=== PATIENT | female | born 1960 | race Caucasian/White ===

== ENCOUNTER 2019-04-07 06:27 | Inpatient (IN) | payer MEDICARE ==
[~2019-04-07] VITALS: Ht 170.2 cm; Wt 97.5 kg
[2019-04-07] MEDS ORDERED: LEVSOD125 PO (06:41)
[2019-04-07] MEDS ORDERED: METPHE10 PO (06:41)
[2019-04-07] MEDS ORDERED: ALPHA LIPOIC A200 M1 PO (06:41)
[2019-04-07] MEDS ORDERED: CALCIUM CIT 311 EACH (06:41)
[2019-04-07] MEDS ORDERED: SELENIUM200 MC2 PO (06:42)
[2019-04-07] MEDS ORDERED: Lysine1000 MG PO (06:42)
[2019-04-07] MEDS ORDERED: Coq-1030 MG PO (06:42)
[2019-04-07] MEDS ORDERED: FISH OIL 1,2001 EACH PO (06:42)
[2019-04-07] MEDS ORDERED: CYCL10 PO (06:43)
[2019-04-07] MEDS ORDERED: DOCU100 PO (06:43)
[2019-04-07] MEDS ORDERED: ZINC15 (06:43)
[2019-04-07] MEDS ORDERED: TURMERIC 500 M1 EACH PO ×2 (06:43→06:50)
[2019-04-07] MEDS ORDERED: ASPI81CH PO (06:44)
[2019-04-07] MEDS ORDERED: Neilmed Sinus1 EAC2 (06:44)
[2019-04-07] MEDS ORDERED: POTCIT10 (06:45)
[2019-04-07] MEDS ORDERED: MELA3 (06:45)
[2019-04-07] MEDS ORDERED: MAGNESIUM CITR125 MG PO (06:45)
[2019-04-07] MEDS ORDERED: Norco 7.5-3251 EACH (06:48)
[2019-04-07] MEDS ORDERED: KETO10 PO (06:48)
[2019-04-07] MEDS ORDERED: MUPIROCIN15 GM (06:49)
[2019-04-07] MEDS ORDERED: MORP15ER (06:49)
[2019-04-07] MEDS ORDERED: Promethazine12.5 M1 PO (06:49)
[2019-04-07] MEDS ORDERED: SUMA5NI (06:50)
[2019-04-07] MEDS ORDERED: TIZA4 PO (06:50)
[2019-04-07] MEDS ORDERED: Effexor Xr150 MG PO (06:51)
[2019-04-07] MEDS ORDERED: VERA80 PO (06:51)
[2019-04-07 08:17] LABS: BASOPHILS ABSOLUTE AUTO 0.04 K/mm3 (0.00-0.23); BASOPHILS PERCENT AUTO 0 % (0-2); EOSINOPHILS ABSOLUTE AUTO 0.13 K/mm3 (0.00-0.68); EOSINOPHILS PERCENT AUTO 1 % (0-6); Hematocrit 38.6 % (33.0-51.0); Hemoglobin 12.4 g/dL (11.5-16.0); IMMATURE GRAN ABSOLUTE AUTO 0.04 K/mm3 (0.00-0.10); IMMATURE GRAN PERCENT AUTO 0 % (0-1); LYMPHOCYTES ABSOLUTE AUTO 1.07 K/mm3 (0.84-5.20); LYMPHOCYTES PERCENT AUTO 12 % (21-46); MONOCYTES ABSOLUTE AUTO 0.45 K/mm3 (0.16-1.47); MONOCYTES PERCENT AUTO 5 % (4-13); Mean Corpuscular HGB 30.4 pg (26.0-34.0); Mean Corpuscular HGB Conc 32.1 g/dL (31.5-36.5); Mean Corpuscular Volume 95 fL (80-100); NEUTROPHILS ABSOLUTE AUTO 7.29 K/mm3 (1.96-9.15); NEUTROPHILS PERCENT AUTO 81 % (41-73); RDW Coefficient Variation 12.9 % (11.7-14.2); RDW Standard Deviation 44.8 fL (35.1-46.3); Red Blood Cell Count 4.08 M/mm3 (3.80-5.20); White Blood Cell Count 9.02 K/mm3 (4.00-11.30)
[2019-04-07 08:27] LABS: Mean Platelet Volume 9.4 fL (9.1-12.4); Platelet Count 220 K/mm3 (150-400)
[2019-04-07 08:32] LABS: Anion Gap 4 mmol/L (6-16); Blood Urea Nitrogen 22 mg/dL (8-24); Bun/Creatinine Ratio 23.7 (12.0-20.0); CO2, Blood 30 mmol/L (21-32); Calcium, Blood 8.4 mg/dL (8.5-10.1); Chloride, Blood 106 mmol/L (98-108); Creatinine, Blood 0.93 mg/dL (0.40-1.00); Glomerular Filtration Rate >60 (60-); Glucose, Blood 100 mg/dL (70-99); Potassium, Blood 4.3 mmol/L (3.5-5.5); Sodium, Blood 140 mmol/L (136-145)
[2019-04-07 09:02] LABS: International Normalized Ratio 0.96; Prothrombin Time Results 10.2 Sec (9.7-11.5)
[2019-04-07] MEDS ORDERED: TOCO1000 PO (10:57)
[2019-04-07] MEDS ORDERED: SENN187 PO (10:58)
[2019-04-07] MEDS ORDERED: VITAMIN B-1000.4 MG PO (11:00)
[2019-04-07] MEDS ORDERED: VITB2 PO (11:01)
[2019-04-07] MEDS ORDERED: Vitamin K100 MCG PO (11:02)
[2019-04-07] MEDS ORDERED: CULTURELLE1 EACH PO (11:03)
[2019-04-07] MEDS ORDERED: GENPREOPSU BOTHEYES (11:03)
[2019-04-07 11:25] LABS: Source, Urine Catheter
[2019-04-07 11:37] LABS: Bilirubin, Urine Neg (Neg); Blood, Urine Neg (Neg); Glucose Qualitative, Urine Neg (Neg); Ketones, Urine Neg (Neg); Leukocyte Esterase, Urine Neg (Neg); Nitrite, Urine Neg (Neg); Protein, Urine Neg (Neg); Urobilinogen, Urine NORM (Normal)
[2019-04-07 11:42] LABS: Appearance, Urine Clear (Clear); Color, Urine Yellow (P-Yellow)
--- NOTE | 2019-04-07 11:45 | NUR ---
ADMIT NEW ER ADMIT WITH R FEMUR FX R/T TO A FALL AT HOME. PT IS ALERT AND ORIENTED AND COOPERATIVE, BUT IS ANXIOUS AT TIMES. R LEG REPOSITIONED/ELEVATED ON PILLOWS FOR COMFORT. R LEG IS MILDLY EDEMATOUS AND IS EXTERNALLY ROTATED. PT DENIES N/T AND IS ABLE TO WIGGLE TOES. PT IS NPO AND IS ON THE SURGICAL SCHEDULE FOR TODAY. PT MEDICATED WITH IV FENTANYL FOR PAIN AND STARTED ON IVF. CALIXTO PATENT WITH CLEAR YELLOW URINE. VSS. CALL LIGHT WITHIN REACH.
[2019-04-07 12:08] LABS: U Amphetamine Screen Not Detected; U Barbituate Screen Not Detected; U Benzodiazapine Screen Not Detected; U Buprenorphine Screen Not Detected; U Cannabinoids Screen Not Detected; U Cocaine Screen Not Detected; U Methadone Screen Not Detected; U Methamphetamine Screen Not Detected; U Opiates Screen Not Detected; U Oxycodone Screen Not Detected; U Phencyclidine Screen Not Detected; U Propoxyphene Screen Not Detected
--- NOTE | 2019-04-07 12:14 | NUR ---
REQUEST FOR CURRENT MEDICATION LIST FAXED TO [facility].
--- NOTE | 2019-04-07 12:54 | NUR ---
DR. VILLEDA IN TO CONSULT ON PATIENT.
--- NOTE | 2019-04-07 14:20 | NUR ---
PT TO DAY SURGERY VIA HOSPITAL BED.
--- NOTE | 2019-04-07 14:28 | NUR ---
History, Chart, Medications and Allergies reviewed before start of procedure.History, Chart, Medications and Allergies reviewed before start of procedure.Patient confirms NPO status and agrees with scheduled surgery.
--- NOTE | 2019-04-07 14:50 | NUR ---
PHONE GLASSES DENTURES LEFT IN PATIENTS ROOM. RING REMOVED AND PLACED IN BAG IN PATIENTS CHART.
--- NOTE | 2019-04-07 19:47 | NUR ---
20GA IV LAC REMOVED UNDER NURSES SUPERVISION DUE TO INFILTRATION.
--- NOTE | 2019-04-07 21:04 | NUR ---
PT ARRIVED FROM PACU VIA GURNEY AT 1930. PT A/O WITH AQUACEL IN PLACE TO RIGHT HIP C/D/I; NO DRAINAGE NOTED. VITALS STABLE AND RATES PAIN AT TOLERABLE LEVEL. SPO2 AT 98% ON RA. CALL LIGHT WITHIN REACH.
--- NOTE | 2019-04-08 04:19 | NUR ---
SHIFT SUMMARY POD #1 S/P RIGHT RASHEED. AQUACEL DRESSING C/D/I WITH NO DRAINAGE NOTED. A&OX4 WITH VSS. PAIN MANAGED PER EMAR WITH PO MEDICATIONS. CALIXTO REMOVED DURING SHIFT, ABLE TO VOID AFTER. PASSING FLATUS AND BM. TOLERATING REG ADA DIET WELL, DENIES N/V. AMB TO BATHROOM WITH SBA, GAITBELT, AND FWW.
[2019-04-08 04:39] LABS: BASOPHILS ABSOLUTE AUTO 0.02 K/mm3 (0.00-0.23); BASOPHILS PERCENT AUTO 0 % (0-2); EOSINOPHILS PERCENT AUTO 0 % (0-6); Hematocrit 31.3 % (33.0-51.0); Hemoglobin 9.9 g/dL (11.5-16.0); IMMATURE GRAN ABSOLUTE AUTO 0.04 K/mm3 (0.00-0.10); IMMATURE GRAN PERCENT AUTO 0 % (0-1); LYMPHOCYTES PERCENT AUTO 5 % (21-46); MONOCYTES ABSOLUTE AUTO 0.75 K/mm3 (0.16-1.47); MONOCYTES PERCENT AUTO 6 % (4-13); Mean Corpuscular HGB 30.5 pg (26.0-34.0); Mean Corpuscular HGB Conc 31.6 g/dL (31.5-36.5); Mean Corpuscular Volume 96 fL (80-100); Mean Platelet Volume 9.1 fL (9.1-12.4); NEUTROPHILS ABSOLUTE AUTO 11.43 K/mm3 (1.96-9.15); NEUTROPHILS PERCENT AUTO 88 % (41-73); Platelet Count 251 K/mm3 (150-400); RDW Coefficient Variation 12.9 % (11.7-14.2); RDW Standard Deviation 46.2 fL (35.1-46.3); Red Blood Cell Count 3.25 M/mm3 (3.80-5.20); White Blood Cell Count 12.94 K/mm3 (4.00-11.30)
[2019-04-08 05:14] LABS: Alanine Aminotransfer (ALT/SGP 23 U/L (12-78); Albumin, Blood 2.7 g/dL (3.4-5.0); Albumin/Globulin Ratio 0.8 (0.8-1.8); Alk Phos 107 U/L (50-136); Anion Gap 6 mmol/L (6-16); Aspartate Aminotrans (AST/SGOT 32 U/L (12-37); Bilirubin, Total <0.1 mg/dL (0.1-1.0); Blood Urea Nitrogen 29 mg/dL (8-24); Bun/Creatinine Ratio 31.4 (12.0-20.0); CO2, Blood 27 mmol/L (21-32); Calcium, Blood 7.7 mg/dL (8.5-10.1); Chloride, Blood 106 mmol/L (98-108); Creatinine, Blood 0.92 mg/dL (0.40-1.00); Globulin, Blood 3.2 g/dL (2.2-4.0); Glomerular Filtration Rate >60 (60-); Glucose, Blood 202 mg/dL (70-99); Potassium, Blood 4.2 mmol/L (3.5-5.5); Sodium, Blood 139 mmol/L (136-145); Total Protein, Blood 5.9 g/dL (6.4-8.2)
--- NOTE | 2019-04-08 17:27 | NUR ---
PAIN CONTROLLED WITH PO MEDS. PATIENT IS ANTICIPATING DISCHARGE HOME TOMORROW AFTER PT SESSION.PATIENT MIGRAINE RELIEVED AFTER DHE INJECTION. DONNA PO FOOD AND FLUID WITHOUT NAUSEA
--- NOTE | 2019-04-09 04:13 | NUR ---
Patient A/O x4. VSS. Complaints of pain to R hip; medicated as ordered. Ambulating with SBA and FWW. Weightbear as gee. Aquacell dressing DCI. Voiding freely. Tolerating PO intake.
--- NOTE | 2019-04-09 06:16 | NUR ---
Low grade temp 100F, Tylenol given. Educated patient on deep breathing and cough.
[2019-04-09] MEDS ORDERED: Flonase 0.05% N16 GM (06:39)
[2019-04-09 09:34] LABS: BASOPHILS ABSOLUTE AUTO 0.02 K/mm3 (0.00-0.23); BASOPHILS PERCENT AUTO 0 % (0-2); EOSINOPHILS ABSOLUTE AUTO 0.09 K/mm3 (0.00-0.68); EOSINOPHILS PERCENT AUTO 1 % (0-6); Hematocrit 29.1 % (33.0-51.0); Hemoglobin 9.2 g/dL (11.5-16.0); IMMATURE GRAN ABSOLUTE AUTO 0.04 K/mm3 (0.00-0.10); IMMATURE GRAN PERCENT AUTO 0 % (0-1); LYMPHOCYTES ABSOLUTE AUTO 1.61 K/mm3 (0.84-5.20); LYMPHOCYTES PERCENT AUTO 18 % (21-46); MONOCYTES ABSOLUTE AUTO 0.56 K/mm3 (0.16-1.47); MONOCYTES PERCENT AUTO 6 % (4-13); Mean Corpuscular HGB 29.9 pg (26.0-34.0); Mean Corpuscular HGB Conc 31.6 g/dL (31.5-36.5); Mean Corpuscular Volume 95 fL (80-100); Mean Platelet Volume 9.2 fL (9.1-12.4); NEUTROPHILS ABSOLUTE AUTO 6.69 K/mm3 (1.96-9.15); NEUTROPHILS PERCENT AUTO 74 % (41-73); Platelet Count 184 K/mm3 (150-400); RDW Coefficient Variation 13.2 % (11.7-14.2); RDW Standard Deviation 45.7 fL (35.1-46.3); Red Blood Cell Count 3.08 M/mm3 (3.80-5.20); White Blood Cell Count 9.01 K/mm3 (4.00-11.30)
[2019-04-09] MEDS ORDERED: TYLENOL325 MG PO (12:12)
[2019-04-09] MEDS ORDERED: Senna Plus Tab1 EACH PO (12:13)
[2019-04-09] MEDS ORDERED: OXYC5 PO (12:29)
--- NOTE | 2019-04-09 14:27 | NUR ---
DISCHARGE PT PROVIDED WITH WRITTEN AND VERBAL DISCHARGE INSTRUCTIONS, SCRIPT FOR PAIN MEDICATION, AND CLEAN DRESSINGS. PT REPORTED UNDERSTANDING DISCHARGE INSTRUCTIONS AFTER QUESTIONS WERE ANSWERED. PT DISCHARGE AT APPROXIMATELY 1319. PRIOR TO DISCHARGE SAFETY WHILE AMBULATING WAS DISCUSSED. PT WAS ENCOURAGED TO USE A FWW INSTEAD OF A 4-WHEELED WALKER. PT REPORTS SHE FEELS UNSAFE USING A FWW AND SHE PLANS TO CONTINUE TO USE A 4-WHEELED WALKER. DISCUSSED WITH PATIENT THAT 4-WHEELED WALKER WILL NOT PROVIDE ADEQUATE SUPPORT AND SHE WILL NOT BE ABLE TO STAND UP STRAIGHT OR STEP INSIDE THE WALKER WHILE USING IT. PT REPORTED SHE UNDERSTOOD, SCRIPT PROVIDED FOR FWW WHICH PT REPORTED SHE WOULD NOT FILL.
== END 2019-04-09 13:19 | disposition home or self-care (01) | DRG 470 ==
LOC: ER 06:27 → SURS 09:48
PROVIDERS: Emergency Medicine; Internal Medicine; Nurse Practitioner Acute Care; Orthopaedic Surgery; ADMIT Internal Medicine
PROC: 0SR904A Replacement of Right Hip Joint with Ceramic on Polyethylene Synthetic Substitute, Uncemented, Open Approach (ICD-10-PCS; principal; 2019-04-07 15:30)
DX: S72.011A Unspecified intracapsular fracture of right femur, initial encounter for closed fracture (principal); G89.4 Chronic pain syndrome; E06.3 Autoimmune thyroiditis; F32.9 Major depressive disorder, single episode, unspecified; E11.9 Type 2 diabetes mellitus without complications; F41.0 Panic disorder [episodic paroxysmal anxiety]; F90.9 Attention-deficit hyperactivity disorder, unspecified type; F42.9 Obsessive-compulsive disorder, unspecified; G43.909 Migraine, unspecified, not intractable, without status migrainosus; G44.89 Other headache syndrome; Z88.6 Allergy status to analgesic agent; Z88.8 Allergy status to other drugs, medicaments and biological substances; Z79.82 Long term (current) use of aspirin; Z79.899 Other long term (current) drug therapy; Z87.891 Personal history of nicotine dependence
CPT/HCPCS: 36415; 51702; 71045; 72170; 73502; 73560-RT; 80048; 80053; 81003; 82947; 85025; 85610; 93005; 93010; 96374-59; 96375-59; 96376-59; 97110; 97116; 97162; 97165; 97530; 97535; 99285-25; A9270; C1776; J0171; J0690; J0735; J1100; J1110; J1885; J2250; J2270; J2405; J2704; J2795; J3010; J3370; J7030; J7120

== ENCOUNTER 2019-09-03 09:53 | Day surgery (SDC) | payer MEDICARE ==
[~2019-09-03 09:53] MED LIST: ALPHA LIPOIC A200 M1 PO; ASPI81CH PO; CALCIUM CIT 311 EACH PO; CULTURELLE1 EACH PO; CYCL10 PO; Coq-1030 MG PO; DOCU100 PO; Effexor Xr150 MG PO; FISH OIL 1,2001 EACH PO; Flonase 0.05% N16 GM; GENPREOPSU BOTHEYES; KETO10 PO; LEVSOD125 PO; Lysine1000 MG PO; MAGNESIUM CITR125 MG PO; MELA3; METPHE10 PO; MORP15ER; MUPIROCIN15 GM; Neilmed Sinus1 EAC2; Norco 7.5-3251 EACH; OXYC5 PO; POTCIT10; Promethazine12.5 M1 PO; SELENIUM200 MC2 PO; SENN187 PO; SUMA5NI; Senna Plus Tab1 EACH PO; TIZA4 PO; TOCO1000 PO; TURMERIC 500 M1 EACH PO; TYLENOL325 MG PO; VERA80 PO; VITAMIN B-1000.4 MG PO; VITB2 PO; Vitamin K100 MCG PO; ZINC15
[2019-09-03] MEDS ORDERED: ACET325 PO (10:30)
[2019-09-03] MEDS ORDERED: Abilify2 MG PO (13:18)
[2019-09-03] MEDS ORDERED: SUCR1 PO (13:19)
[2019-09-03] MEDS ORDERED: OMEP20ER PO (13:19)
== END 2019-09-03 11:35 | disposition home or self-care (01) ==
LOC: ATC 09:53
DX: E86.0 Dehydration (principal); R11.2 Nausea with vomiting, unspecified; Z79.82 Long term (current) use of aspirin; Z79.899 Other long term (current) drug therapy; Z98.84 Bariatric surgery status
CPT/HCPCS: 96360; J7030

== ENCOUNTER 2019-09-10 00:41 | Day surgery (SDC) | payer MEDICARE ==
[~2019-09-10 00:41] MED LIST changes: +ACET325 PO; +Abilify2 MG PO; -CULTURELLE1 EACH PO; +Culturelle1 CAP PO; +EUTHYROX125 MCG PO; -LEVSOD125 PO; +OMEP20ER PO; +SUCR1 PO
== END 2019-09-10 12:42 | disposition home or self-care (01) ==
LOC: ATC 00:41
DX: E86.0 Dehydration (principal); R11.2 Nausea with vomiting, unspecified; E78.5 Hyperlipidemia, unspecified; J45.909 Unspecified asthma, uncomplicated; I10 Essential (primary) hypertension; K21.9 Gastro-esophageal reflux disease without esophagitis; F32.9 Major depressive disorder, single episode, unspecified; E11.42 Type 2 diabetes mellitus with diabetic polyneuropathy; Z98.84 Bariatric surgery status; E66.9 Obesity, unspecified; Z88.8 Allergy status to other drugs, medicaments and biological substances; Z88.1 Allergy status to other antibiotic agents; Z91.018 Allergy to other foods; Z79.899 Other long term (current) drug therapy; Z79.82 Long term (current) use of aspirin; Z87.891 Personal history of nicotine dependence; Z68.42 Body mass index [BMI] 45.0-49.9, adult
CPT/HCPCS: J7030

== ENCOUNTER 2019-10-16 01:54 | Day surgery (SDC) | payer MEDICARE ==
[~2019-10-16 01:54] MED LIST changes: +AIMOVIG AU70 MG/1 ML SC
== END 2019-10-16 15:18 | disposition home or self-care (01) ==
LOC: ATC 01:54
DX: E86.0 Dehydration (principal); Z98.84 Bariatric surgery status; R11.2 Nausea with vomiting, unspecified; F41.1 Generalized anxiety disorder; E78.5 Hyperlipidemia, unspecified; K21.9 Gastro-esophageal reflux disease without esophagitis; E66.9 Obesity, unspecified; G47.33 Obstructive sleep apnea (adult) (pediatric); E11.42 Type 2 diabetes mellitus with diabetic polyneuropathy; Z79.899 Other long term (current) drug therapy
CPT/HCPCS: 96360; J7030

== ENCOUNTER 2019-10-26 00:14 | Day surgery (SDC) | payer MEDICARE | END 2019-10-26 09:35 | disposition home or self-care (01) | LOC: ATC 00:14 | DX: E86.0 Dehydration (principal); E78.5 Hyperlipidemia, unspecified; E66.9 Obesity, unspecified; K21.9 Gastro-esophageal reflux disease without esophagitis; G47.33 Obstructive sleep apnea (adult) (pediatric); F33.9 Major depressive disorder, recurrent, unspecified; G89.29 Other chronic pain; I10 Essential (primary) hypertension; J45.909 Unspecified asthma, uncomplicated; E11.42 Type 2 diabetes mellitus with diabetic polyneuropathy; Z68.42 Body mass index [BMI] 45.0-49.9, adult; Z79.899 Other long term (current) drug therapy; Z98.84 Bariatric surgery status; Z87.891 Personal history of nicotine dependence | CPT/HCPCS: 96360; J7030 ==

== ENCOUNTER 2019-10-30 02:01 | Day surgery (SDC) | payer MEDICARE | END 2019-10-30 22:48 | disposition home or self-care (01) | LOC: ATC 02:01 | DX: E86.0 Dehydration (principal); R11.2 Nausea with vomiting, unspecified; Z98.84 Bariatric surgery status; I10 Essential (primary) hypertension; E78.5 Hyperlipidemia, unspecified; E03.9 Hypothyroidism, unspecified; K21.9 Gastro-esophageal reflux disease without esophagitis; F41.9 Anxiety disorder, unspecified; J45.909 Unspecified asthma, uncomplicated; F32.9 Major depressive disorder, single episode, unspecified; E11.42 Type 2 diabetes mellitus with diabetic polyneuropathy; Z79.82 Long term (current) use of aspirin; Z79.899 Other long term (current) drug therapy | CPT/HCPCS: 96360; J7030 ==

== ENCOUNTER 2019-11-16 00:31 | Day surgery (SDC) | payer MEDICARE ==
[~2019-11-16 00:31] MED LIST changes: -Culturelle1 CAP PO; -GENPREOPSU BOTHEYES; +PRED-G 1% EYE DR5 ML BOTHEYES; +[UNRECOGNIZED DRUG - OTHER] PO
[2019-11-16 17:11] LABS: Anion Gap 6 mmol/L (6-16); Blood Urea Nitrogen 38 mg/dL (8-24); Bun/Creatinine Ratio 42.9 (12.0-20.0); CO2, Blood 25 mmol/L (21-32); Calcium, Blood 8.9 mg/dL (8.5-10.1); Chloride, Blood 106 mmol/L (98-108); Creatinine, Blood 0.89 mg/dL (0.40-1.00); Glomerular Filtration Rate >60 (60-); Glucose, Blood 126 mg/dL (70-99); Potassium, Blood 3.8 mmol/L (3.5-5.5); Sodium, Blood 137 mmol/L (136-145)
== END 2019-11-16 17:43 | disposition home or self-care (01) ==
LOC: ATC 00:31
PROVIDERS: Surgery
DX: Z98.84 Bariatric surgery status (principal); K21.9 Gastro-esophageal reflux disease without esophagitis; E66.9 Obesity, unspecified; E78.5 Hyperlipidemia, unspecified; G47.33 Obstructive sleep apnea (adult) (pediatric); J45.909 Unspecified asthma, uncomplicated; F32.9 Major depressive disorder, single episode, unspecified; E11.42 Type 2 diabetes mellitus with diabetic polyneuropathy; I10 Essential (primary) hypertension; Z79.82 Long term (current) use of aspirin; Z79.899 Other long term (current) drug therapy
CPT/HCPCS: 80048; 96360; J7030

== ENCOUNTER 2019-11-20 00:05 | Day surgery (SDC) | payer MEDICARE | END 2019-11-20 14:41 | disposition home or self-care (01) | LOC: ATC 00:05 | DX: E86.0 Dehydration (principal); Z98.84 Bariatric surgery status; F90.9 Attention-deficit hyperactivity disorder, unspecified type; F41.1 Generalized anxiety disorder; K21.9 Gastro-esophageal reflux disease without esophagitis; E11.40 Type 2 diabetes mellitus with diabetic neuropathy, unspecified; E66.9 Obesity, unspecified; G47.33 Obstructive sleep apnea (adult) (pediatric); I10 Essential (primary) hypertension; E78.5 Hyperlipidemia, unspecified; E03.9 Hypothyroidism, unspecified; Z79.899 Other long term (current) drug therapy; Z88.1 Allergy status to other antibiotic agents; Z88.8 Allergy status to other drugs, medicaments and biological substances | CPT/HCPCS: 96360; J7030 ==

== ENCOUNTER 2019-11-27 00:47 | Day surgery (SDC) | payer MEDICARE | END 2019-11-27 14:37 | disposition home or self-care (01) | LOC: ATC 00:47 | DX: R11.2 Nausea with vomiting, unspecified (principal); Z98.84 Bariatric surgery status; E78.5 Hyperlipidemia, unspecified; K21.9 Gastro-esophageal reflux disease without esophagitis; E11.40 Type 2 diabetes mellitus with diabetic neuropathy, unspecified; E03.9 Hypothyroidism, unspecified; I10 Essential (primary) hypertension | CPT/HCPCS: 96360; J7030 ==